=== PATIENT | female | born 1980 | race Caucasian/White ===

== ENCOUNTER 2024-01-21 08:37 | Observation (INO) | payer OTHER, SELFPAY ==
--- NOTE | 2024-01-21 | CONS_ITS ---
CONSULTATION ? CONSULTATION DATE: ??01/21/2024 ? REASON FOR CONSULTATION:?? Abdominal pain, cholelithiasis. ? HISTORY OF PRESENT ILLNESS:? Patient is a 44-year-old female, been previously in good health, who presented to the emergency room this morning with acute onset of upper abdominal pain that woke her from sleep at 3:00 a.m.? She did have associated nausea, vomiting.? Reports the pain was sharp, radiated around the upper abdomen.? She did feel bloating and pressure as well.? No relief with vomiting.? She does report a history of milder, similar type symptoms, worse with fatty foods, but never of this intensity.? Because of the persistent pain, she presented to the emergency room.? She was noted to have normal laboratory evaluation.? CT scan revealed evidence of a distended gallbladder without significant inflammatory changes.? Subsequent underwent ultrasound which revealed mild thickening of the gallbladder wall, as well as distention and numerous stones within the gallbladder, normal size common bile duct.? Patient?s only abdominal surgery has been a in the past.? She denies history of jaundice or pancreatitis.? She has had no bowel changes.? Since her admission, she has had no further nausea, vomiting as her pain has improved.? She is a non- smoker.? She reports allergies to penicillin, which causes hives.? ? PAST SURGICAL HISTORY:? Significant for a? in the past.? ? SOCIAL HISTORY:? Patient is .? She denies tobacco use.? She reports rare alcohol use.? No illicit drug use.? FAMILY HISTORY:? Noncontributory. ? REVIEW OF SYSTEMS:? Ten system review of systems is negative for recent weight loss or weight gain.? She denies increased fatigue or lightheadedness.? Has had no earache or tinnitus.? No sinus congestion, no sore throat or hoarseness.? No chest pain, palpitations or syncope.? No chronic cough, shortness of breath or hemoptysis.? She has had the abdominal pain, nausea, vomiting, which are improving.? No bowel changes.? No melena, hematochezia or bright red blood per rectum.? No dysuria, frequency, urgency or hematuria.? No headaches, seizures or tremors.? No easy bruising or bleeding.? No heat or cold intolerance.? No polydipsia, polyphagia or polyuria.? ? PHYSICAL EXAM:? VITAL SIGNS:? Patient is afebrile.? Blood pressure 144/82, respiratory rate 16, O2 saturation is 98% on room air.? General:? In general, she is a well developed, well nourished female, currently in mild distress secondary to abdominal pain. HEENT:? Normocephalic, atraumatic.? Sclerae anicteric.? Conjunctivae are not injected.? Oral mucosa is moist without lesions.? Neck is supple.? There is no adenopathy, thyromegaly or JVD. Lungs are clear bilaterally. Cardiac exam is regular rhythm and rate without appreciable murmurs, rubs or gallops. Abdomen is obese, soft.? There is tenderness in the epigastrium, right upper quadrant.? No peritoneal signs.? No masses.? No hepatosplenomegaly.? No hernias noted.? No CVA tenderness. Skin is warm and dry without lesions, rashes or ulcers. Neuro exam is non-focal, non-lateralizing.? Patient is awake, alert, oriented with appropriate affect. Musculoskeletal exam reveals normal muscle strength, mass and tone. ? IMAGING:? CT scan and ultrasound images were personally reviewed. ? ASSESSMENT:? A 44-year-old female with evidence of severe upper abdominal pain associated with nausea, vomiting, evidence of distended gallbladder with multiple stones within the gallbladder, as well as mild gallbladder wall thickening, overall consistent with possible early cholecystitis versus severe episode of biliary colic. ? PLAN:? To hydrate the patient.? Keep her on IV antibiotics.? She has been on minimal clear liquid diet, which she is not really taking.? We will keep her NPO after midnight and plan on laparoscopic cholecystectomy tomorrow.? Indications, risks, benefits, alternatives of proceeding were explained extensively to the patient, including risks of bleeding, infection, bile duct injury, bowel injury, need for intraoperative cholangiogram, postoperative ERCP, open procedure, blood clot, pulmonary embolus, heart attack, anesthetic complications and need for further surgery.? All of her questions were answered.? Informed consent was obtained.? ? CC:? Patient?s family doctor ERIC
[2024-01-21 08:42] VITALS: BP 175/90; PULSE 59; TEMP 36.7; O2SAT 98; BMI 41.8
--- NOTE | 2024-01-21 09:17 | ED.GENADUL1 ---
HPI HPI - General Adult General Chief complaint: Abdominal Pain Stated complaint: ABDOMINAL PAIN/VOMITTING Time Seen by Provider: 01/21/24 09:02 Source: patient Mode of arrival: walk-in Limitations: no limitations History of Present Illness HPI narrative: Patient presented to the emergency department for evaluation of abdominal pain. Patient states that she woke up at approximately 3 AM with abdominal pain. States it is epigastric, right upper quadrant. Has been coming and going since 3 AM. States that she is thrown up approximately 4-5 times since 3 AM. Patient states nothing makes the pain better or worse, but she feels that her stomach is cramping. She states it is currently 6 out of 10. Patient states no radiation of the pain. No hematuria, urgency, frequency, diarrhea, constipation. Patient denies any fevers, chills, or inability tolerate oral intake. States for the last couple hours while the fluid is out of her stomach and she is now just dry heaving. No other complaints at this time Related Data Home Medications ?Medication ?Instructions ?Recorded ?Confirmed No Known Home Medications 01/21/24 01/21/24 Allergies Allergy/AdvReac Type Severity Reaction Status Date / Time Penicillins AdvReac Mild Hives Verified 01/21/24 08:42 Opioid HPI Opioid Management Most Recent Opioid Data: Last Pain Scale 8 01/21/24 12:12 Last MAR Pain Assessment 01/21/24 12:12 Review of Systems ROS Narrative Negative unless otherwise stated in HPI Exam Narrative Exam Narrative: General: NAD, AAOx3, no distress HEENT: NCAT, mmm Respiratory: respiratory effort normal, speaks in full sentences, no tripod position, no accessory muscle use. Lungs clear to auscultation without rhonchi, wheezes, rales Cardiac: Regular rate and rhythm, no edema, regular s1/s2, no m/g/r Abdomen: Soft, right upper quadrant abdominal tenderness. No evidence of fluid wave. No pulsatile masses on exam, rebound tenderness, Mcdonald sign or pain over Mcburney's point. Constitutional Vital Signs, click to edit/add: Last Vital Signs Temp 98.0 F 01/21/24 08:42 Pulse 59 L 01/21/24 08:42 Resp 18 01/21/24 08:42 BP 175/90 H 01/21/24 08:42 Pulse Ox 98 01/21/24 08:42 O2 Del Method Room Air 01/21/24 08:42 Course Vital Signs Vital signs: Vital Signs Temperature 98.0 F 01/21/24 08:42 Pulse Rate 59 L 01/21/24 08:42 Respiratory Rate 18 01/21/24 08:42 Blood Pressure 175/90 H 01/21/24 08:42 Pulse Oximetry 98 01/21/24 08:42 Oxygen Delivery Method Room Air 01/21/24 08:42 Temperature 98.0 F 01/21/24 08:42 Pulse Rate 59 L 01/21/24 08:42 Respiratory Rate 18 01/21/24 08:42 Blood Pressure 175/90 H 01/21/24 08:42 Pulse Oximetry 98 01/21/24 08:42 Oxygen Delivery Method Room Air 01/21/24 08:42 Medical Decision Making MDM Narrative Medical decision making narrative: MDM Patient with history as above presented with abdominal pain. History obtained from patient Patient was nontoxic, stable. Ambulatory. Exam as above. Labs reviewed. Independently reviewed imaging. Reviewed external records. Differential diagnosis considered. Overall presentation is consistent with acute cholecystitis 1144 I discussed with general surgery. He will be on consult [address] Og, who agreed to admit patient for acute cholecystitis with general surgery on consult. Signout was completed at this time. Medical Records Medical records reviewed: Yes I reviewed the patient's medical records Lab Data Lab results reviewed: Yes I reviewed the patient's lab results Labs: Lab Results 01/21/24 01/21/24 Range/Units 08:46 10:53 WBC 11.2 H (4.0-11.0) 10^3/uL RBC 4.58 (4.20-5.40) 10^6/uL Hgb 13.9 (12.0-16.0) g/dL Hct 40.4 (36.0-48.0) % MCV 88.2 (81.0-99.0) fL MCH 30.3 (26.7-34.0) pg MCHC 34.4 (29.9-35.2) g/dL RDW 12.6 (11.0-15.0) % Plt Count 300 (150-450) 10^3/uL MPV 11.6 (9.5-13.5) fL Neut % (Auto) 84.7 H (43.0-75.0) % Lymph % (Auto) 10.4 L (20.5-60.0) % [facility] % (Auto) 4.0 (1.7-12.0) % Eos % (Auto) 0.3 L (0.9-7.0) % Baso % (Auto) 0.3 (0.2-2.0) % Neut # (Auto) 9.5 H (1.4-6.5) 10^3/uL Lymph # (Auto) 1.2 (1.2-3.8) 10^3/uL [facility] [place] [facility] # (Auto) 0.5 (0.3-0.8) 10^3/uL Eos # (Auto) 0.0 (0.0-0.7) 10^3/uL Baso # (Auto) 0.0 (0.0-0.1) 10^3/uL Abs Immat Gran (auto) 0.03 (0.00-0.03) 10^3/uL Imm/Tot Granulo (auto) 0.3 (0.0-0.5) % Sodium 138 (136-145) mmol/L Potassium 4.2 (3.5-5.1) mmol/L Chloride 101 (98-107) mmol/L Carbon Dioxide 23.9 (21.0-32.0) mmol/L Anion Gap 17.3 BUN 15.0 (7.0-18.0) mg/dL Creatinine 0.76 (0.55-1.02) mg/dL Est GFR ( Amer) >60 (>=60) Est GFR (Non-Af Amer) >60 (>=60) BUN/Creatinine Ratio 19.7 Glucose 131 H (74-106) mg/dL Calcium 9.5 (8.5-10.1) mg/dL Total Bilirubin 0.4 (0.2-1.0) mg/dL AST 21 (15-37) U/L ALT 27 (14-59) U/L Alkaline Phosphatase 62 (46-116) U/L Total Protein 7.8 (6.4-8.2) g/dL Albumin 4.0 (3.4-5.0) g/dL Globulin 3.8 g/dL Albumin/Globulin Ratio 1.1 Lipase 46.0 (16.0-77.0) U/L Urine HCG, Qual Negative (NEGATIVE) Imaging Data US - abdomen: Radiologist's impression: ITS Impressions Abdomen/Pelvis CT 01/21/24 10:05 IMPRESSION: 1. Suspect cholelithiasis and possibly acute cholecystitis. Ultrasound evaluation recommended. Electronically authenticated by: BRENDA MELENDEZ Date: 01/21/2024 10:28 Upper Quadrant Ultrasound 01/21/24 11:02 IMPRESSION: 1. Cholelithiasis and findings consistent with acute cholecystitis. Electronically authenticated by: BRENDA MELENDEZ Date: 01/21/2024 11:45 Discharge Plan Discharge Chief Complaint: Abdominal Pain Clinical Impression: Acute cholecystitis Patient Disposition: Admitted as Observation Time of Disposition Decision: 12:14 Condition: Good Prescriptions / Home Meds: No Action No Known Home Medications Print Language: Pashto Referrals: Physician,Non-Staff, MD [Primary Care Provider] - 1 week
[2024-01-21] MEDS: 0.9 % SODIUM CHLORIDE 1,000 ML 999 ML IV (09:23)
[2024-01-21] MEDS: ONDANSETRON PF 4 MG/2 ML VIAL IV ×2 (09:24→12:12)
[2024-01-21 09:26] LABS: Basophils Percent Auto 0.3 % (0.2-2.0); Eosinophils Percent Auto 0.3 % (0.9-7.0); Hematocrit 40.4 % (36.0-48.0); Hemoglobin 13.9 g/dL (12.0-16.0); Immature Granulocytes Abs Auto 0.03 10^3/uL (0.00-0.03); Immature Granulocytes Pct Auto 0.3 % (0.0-0.5); Lymphocytes Absolute Auto 1.2 10^3/uL (1.2-3.8); Lymphocytes Percent Auto 10.4 % (20.5-60.0); Mean Corpuscular HGB Conc 34.4 g/dL (29.9-35.2); Mean Corpuscular Hemoglobin 30.3 pg (26.7-34.0); Mean Corpuscular Volume 88.2 fL (81.0-99.0); Mean Platelet Volume 11.6 fL (9.5-13.5); Monocytes Absolute Auto 0.5 10^3/uL (0.3-0.8); Neutrophils Absolute Auto 9.5 10^3/uL (1.4-6.5); Neutrophils Percent Auto 84.7 % (43.0-75.0); Platelet Count 300 10^3/uL (150-450); Red Blood Count 4.58 10^6/uL (4.20-5.40); Red Cell Distribution Width 12.6 % (11.0-15.0); White Blood Count 11.2 10^3/uL (4.0-11.0)
[2024-01-21] MEDS: MORPHINE SULFATE 4 MG/ML VIAL IV ×2 (09:28→12:12)
[2024-01-21 09:34] LABS: Alanine Aminotransferase 27 U/L (14-59); Albumin Globulin Ratio 1.1; Alkaline Phosphatase 62 U/L (46-116); Anion Gap 17.3; Aspartate Amino Transferase 21 U/L (15-37); BUN Creatinine Ratio 19.7; Bilirubin Total 0.4 mg/dL (0.2-1.0); Calcium 9.5 mg/dL (8.5-10.1); Carbon Dioxide 23.9 mmol/L (21.0-32.0); Chloride 101 mmol/L (98-107); Estimated GFR (African America >60 (>=60); Estimated GFR (Non-African Ame >60 (>=60); Globulin 3.8 g/dL; Glucose 131 mg/dL (74-106); Potassium 4.2 mmol/L (3.5-5.1); Sodium 138 mmol/L (136-145); Total Protein 7.8 g/dL (6.4-8.2)
--- NOTE | 2024-01-21 10:05 | CT_ITS ---
[address] [place], [place] [address] Patient Name: CRYS OLIVAS MRN: [id number] date: 1980 Sex: F Assigned Patient Location: ER Current Patient Location: ER Accession/Order Number: [id number] Exam Date: 01/21/2024 09:50 Report Date: 01/21/2024 10:28 At the request of: ROLA HEAD Procedure: CT abdomen pelvis w con EXAMINATION: CT abdomen pelvis w con HISTORY: abdominal pain , vomiting, right lower quadrant pain COMPARISON: No relevant comparison available. TECHNIQUE: Axial, Coronal, and Sagittal images were obtained without and/or with IV contrast as indicated by examination type. Dose reduction techniques were achieved by using automated exposure control and/or adjustment of mA and/or kV according to patient size and/or use of iterative reconstruction technique. FINDINGS: LUNG BASES: No visible pulmonary or pleural disease. LIVER: No enlargement, atrophy, suspicious density, or significant focal lesion. BILIARY: Well-distended gallbladder suspected to contain multiple noncalcified stones, borderline wall thickening, and mildly dilated common bile duct, 7 mm. PANCREAS: No lesion, fluid collection, or abnormal duct dilatation. SPLEEN: No enlargement or focal lesion. ADRENALS: No mass or enlargement. KIDNEYS: No mass, obstruction, or calcification. BOWEL/MESENTERY: No visible mass, obstruction, or bowel wall thickening. Normal appendix. AORTA/VASCULAR: No aneurysm or dissection. RETROPERITONEUM: No mass or adenopathy. LYMPH NODES: No adenopathy. URINARY BLADDER: No visible focal wall thickening, lesion, or calculus. PELVIC ORGANS: 2.1 cm mass within posterior uterine wall favoring a leiomyoma. ABDOMINAL WALL: No mass or hernia. BONES: No bony lesion or fracture. OTHER: Negative. CT/CT abdomen pelvis w con IMPRESSION: 1. Suspect cholelithiasis and possibly acute cholecystitis. Ultrasound evaluation recommended. Electronically authenticated by: BRENDA MELENDEZ Date: 01/21/2024 10:28
--- NOTE | 2024-01-21 11:02 | US_ITS ---
The [address] [address] Patient Name: CRYS OLIVAS MRN: [id number] date: 1980 Sex: F Assigned Patient Location: ER Current Patient Location: ER Accession/Order Number: [id number] Exam Date: 01/21/2024 11:05 Report Date: 01/21/2024 11:45 At the request of: ROLA HEAD Procedure: US right upper quadrant EXAMINATION: US right upper quadrant HISTORY: RUQ pain, abnormal CT rule out acute arabella COMPARISON: CT abdomen pelvis 01/21/2024 TECHNIQUE: Transabdominal evaluation of the right upper quadrant. FINDINGS: LIVER: Normal size and echotexture. Color Doppler demonstrates patent hepatic veins. PORTAL VEIN: Duplex Doppler demonstrates normal hepatopetal flow pattern with flow velocity averaging 33 cm/s. GALLBLADDER: Contains numerous stones along with abnormal wall thickening, 3.6 mm. Positive sonographic Mcdonald's sign. BILIARY: Common bile duct is normal in diameter and contains no appreciable stones or mass. PANCREAS: No visible mass, abnormal atrophy, or duct dilation. KIDNEY: No hydronephrosis. No visible mass or stones. Size: 11.5 x 4.5 x 4.1 cm US/US right upper quadrant IMPRESSION: 1. Cholelithiasis and findings consistent with acute cholecystitis. Electronically authenticated by: BRENDA MELENDEZ Date: 01/21/2024 11:45
[2024-01-21 11:03] LABS: HCG Qualitative Urine* NEGATIVE (NEGATIVE); Internal Control Within Normal Limits
[2024-01-21] MEDS: CEFTRIAXONE 1,000 MG in 0.9 % SODIUM CHLORIDE 50 ML 100 MG IV (11:47)
[2024-01-21] MEDS: METRONIDAZOLE/SODIUM CHLORIDE 500 MG/100 ML PREMIX 100 MG IV ×2 (12:13→20:42)
--- NOTE | 2024-01-21 12:49 | PM.HP ---
HPI H&P: HPI History of Present Illness Chief complaint: ABDOMINAL PAIN/VOMITTING Narrative: 44-year-old female with no significant past medical history presents with nausea, vomiting, right upper quadrant abdominal pain since last evening. She denies constipation, diarrhea. She denies prior history of cholelithiasis. Workup in ED revealed acute cholecystitis. She states that she is still feeling nauseous and quite uncomfortable in her right upper quadrant. General surgery consulted for acute cholecystitis. She is a started on IV fluids, IV Rocephin and Flagyl. Will keep her on clear liquid diet for now and then make her n.p.o. after midnight. Opioid HPI Opioid Management Most Recent Pain and Opioid Data: Last Pain Scale 8 01/21/24 12:12 Last MAR Pain Assessment 01/21/24 12:12 Review of Systems ROS Status of ROS 10 or more systems reviewed and unremarkable except as noted in history and below [facility] Social History (Updated 01/21/24 @ 12:51 by Shaikh Lenka MD) Within the past year, how often did you have a drink containing alcohol: monthly or less Within the past year, how many standard drinks containing alcohol did you have on a typical day: 1 or 2 Within the past year, how often did you have six or more drinks on one occasion: never Total score: 0 Score interpretation: A score less than 3 is consistent with normal alcohol consumption. Smoking status: Never smoker Non-prescribed substance use: denies use Meds Home Medications and Allergies Home Medications ?Medication ?Instructions ?Recorded ?Confirmed ?Type No Known Home Medications 01/21/24 01/21/24 History Allergies Allergy/AdvReac Type Severity Reaction Status Date / Time Penicillins AdvReac Mild Hives Verified 01/21/24 08:42 Exam Constitutional Vital Signs, click to edit/add: Last Vital Signs Temp 98.0 F 01/21/24 08:42 Pulse 59 L 01/21/24 08:42 Resp 18 01/21/24 08:42 BP 175/90 H 01/21/24 08:42 Pulse Ox 98 01/21/24 08:42 O2 Del Method Room Air 01/21/24 08:42 Documenting provider has reviewed patient's vital signs: yes Common normals: no apparent distress and oriented x3 General appearance: cooperative Respiratory Common normals: normal respiratory effort and clear to auscultation bilaterally Effort & inspection: able to speak in complete sentences Auscultation: clear to auscultation bilaterally Cardio Common normals: regular rate, S1 normal heart sound and S2 normal heart sound Rate: regular rate Heart sounds: S1 normal and S2 normal GI Common normals: Normal to inspection, nondistended, normoactive bowel sounds present, soft to palpation and no hepatosplenomegaly Palpation: soft, tender Details: RUQ and no hepatosplenomegaly Extremity Common normals: no clubbing, cyanosis or edema Neuro Common normals: oriented x3, moves all extremities and no focal motor deficits Psych Common normals: mental status grossly normal, denies hallucinations, denies homicidal ideation and denies suicidal ideation Results Labs Labs: Short CBC 01/21/24 Range/Units 08:46 WBC 11.2 H (4.0-11.0) 10^3/uL Hgb 13.9 (12.0-16.0) g/dL Hct 40.4 (36.0-48.0) % Plt Count 300 (150-450) 10^3/uL BMP 01/21/24 08:46 Sodium 138 Potassium 4.2 Chloride 101 Carbon Dioxide 23.9 BUN 15.0 Creatinine 0.76 Glucose 131 H Calcium 9.5 Liver Function 01/21/24 Range/Units 08:46 Total Bilirubin 0.4 (0.2-1.0) mg/dL AST 21 (15-37) U/L ALT 27 (14-59) U/L Alkaline Phosphatase 62 (46-116) U/L Albumin 4.0 (3.4-5.0) g/dL Assessment and Plan Assessment and Plan (1) Acute cholecystitis: Assessment and Plan: Patient initial workup is consistent with acute cholecystitis. Continue with IV fluids, antiemetics, IV antibiotics. General surgery consulted (2) Nausea and vomiting: Assessment and Plan: Due to acute cholecystitis. Zofran as needed. Qualifiers: Vomiting type: unspecified Qualified Code(s): R11.2 - Nausea with vomiting, unspecified (3) Leukocytosis: Assessment and Plan: Likely due to acute cholecystitis. On IV antibiotics. Monitor. Qualifiers: Leukocytosis type: leukemoid reaction Qualified Code(s): D72.823 - Leukemoid reaction (4) Elevated blood pressure reading without diagnosis of hypertension: Assessment and Plan: Blood pressure without prior history of hypertension. This could be due to poorly controlled pain and or nausea. Monitor for now. IV hydralazine as needed. Plan Patient presented with nausea, vomiting and leukocytosis. Initial workup consistent with acute cholecystitis. Started on IV fluids, IV antibiotics. Zofran as needed for nausea and vomiting. General surgery consulted. On clear liquid diet for now. N.p.o. after midnight in anticipation of surgical intervention tomorrow
[2024-01-21 12:51] VITALS: BP 156/86; PULSE 78; O2SAT 99
[2024-01-21 13:10] VITALS: BP 144/82; PULSE 58; TEMP 36.5; O2SAT 98
[2024-01-21] MEDS: LACTATED RINGER'S SOLUTION 1,000 ML 125 ML IV ×2 (13:59→22:06)
[2024-01-21 14:31] VITALS: BMI 31.8
[2024-01-21] MEDS: ACETAMINOPHEN 325 MG TABLET 650 MG PO (16:04)
[2024-01-21 17:06] VITALS: O2SAT 98
[2024-01-21] MEDS: ENOXAPARIN SODIUM 40 MG/0.4 ML SYRINGE SUBQ (17:11)
--- NOTE | 2024-01-21 18:32 | PM.GSCN ---
History of Present Illness Consult details Consult date: 01/21/24 Requesting physician: Shaikh Lenka Narrative: patient seen/examined/chart and abd ct/US images reviewed/consult dictated; 44 yo female with acute onset of upper abd pain, N/V 15 hours ago, woke her from sleep, persisted, evaluated in ED and found to have distended GB with multiple stones, normal cbd, mild gallbladder wall thickening, no pericholecystic fluid or inflammation of abd CT scan; normal labs; likely early cholecystitis verses severe episode of biliary colic; plan bowel rest, hydration, IV antibiotics, will proceed with LS cholecystectomy with possible IOC, possible open procedure tomorrow, informed consent obtained. [facility] Medical History (Updated 01/21/24 @ 13:20 by Evelyne Prescott LPN) delivery delivered ?O82 - Encounter for delivery without indication (ICD-10) Family History (Updated 01/21/24 @ 13:21 by Evelyne Prescott LPN) Grandmother Family history of cancer Father Family history of diabetes mellitus Social History (Updated 01/21/24 @ 13:22 by Evelyne Prescott LPN) Within the past year, how often did you have a drink containing alcohol: monthly or less Within the past year, how many standard drinks containing alcohol did you have on a typical day: 1 or 2 Within the past year, how often did you have six or more drinks on one occasion: never Total score: 0 Score interpretation: A score less than 3 is consistent with normal alcohol consumption. Smoking status: Never smoker Non-prescribed substance use: denies use Previous occupational history: prepared foods service team member Known occupational exposures/hazards: No Highest level of school completed/degree received: high school graduate Are you now , , , , never or living with a partner: In a typical week, how many times do you talk on the telephone with family, friends, or neighbors: 3 or more times per week How often do you get together with friends or relatives: 3 or more times per week How often do you attend samaritan or hoahaoism services: never Do you belong to any clubs or organizations such as samaritan groups unions, fraternal or athletic groups, or school groups: no Total score: 1 Score interpretation: A score of less than or equal to 1 indicates the most socially isolated. Little interest or pleasure in doing things: not at all Feeling down, depressed, or hopeless: not at all Feel stressed/tense/nervous/anxious/difficulty sleeping: not at all Due to disability, difficulty making decisions: No Do you think of yourself as: straight/heterosexual Gender Identity: female Meds Home Medications and Allergies Home Medications ?Medication ?Instructions ?Recorded ?Confirmed ?Type No Known Home Medications 01/21/24 01/21/24 History Allergies Allergy/AdvReac Type Severity Reaction Status Date / Time Penicillins AdvReac Mild Hives Verified 01/21/24 08:42 Exam Constitutional Vital Signs, click to edit/add: Last Vital Signs Temp 97.7 F 01/21/24 13:10 Pulse 58 L 01/21/24 13:10 Resp 16 01/21/24 13:10 BP 144/82 H 01/21/24 13:10 Pulse Ox 98 01/21/24 17:06 O2 Del Method Room Air 01/21/24 17:06 Results Labs Labs: Abnormal lab results 01/21/24 Range/Units 08:46 WBC 11.2 H (4.0-11.0) 10^3/uL Neut % (Auto) 84.7 H (43.0-75.0) % Lymph % (Auto) 10.4 L (20.5-60.0) % Eos % (Auto) 0.3 L (0.9-7.0) % Neut # (Auto) 9.5 H (1.4-6.5) 10^3/uL Glucose 131 H (74-106) mg/dL Diabetes panel 01/21/24 Range/Units 08:46 Sodium 138 (136-145) mmol/L Potassium 4.2 (3.5-5.1) mmol/L Chloride 101 (98-107) mmol/L Carbon Dioxide 23.9 (21.0-32.0) mmol/L BUN 15.0 (7.0-18.0) mg/dL Creatinine 0.76 (0.55-1.02) mg/dL Glucose 131 H (74-106) mg/dL Calcium 9.5 (8.5-10.1) mg/dL AST 21 (15-37) U/L ALT 27 (14-59) U/L Alkaline Phosphatase 62 (46-116) U/L Total Protein 7.8 (6.4-8.2) g/dL Albumin 4.0 (3.4-5.0) g/dL Calcium panel 01/21/24 Range/Units 08:46 Calcium 9.5 (8.5-10.1) mg/dL Albumin 4.0 (3.4-5.0) g/dL Pituitary panel 01/21/24 Range/Units 08:46 Sodium 138 (136-145) mmol/L Potassium 4.2 (3.5-5.1) mmol/L Chloride 101 (98-107) mmol/L Carbon Dioxide 23.9 (21.0-32.0) mmol/L BUN 15.0 (7.0-18.0) mg/dL Creatinine 0.76 (0.55-1.02) mg/dL Glucose 131 H (74-106) mg/dL Calcium 9.5 (8.5-10.1) mg/dL Adrenal panel 01/21/24 Range/Units 08:46 Sodium 138 (136-145) mmol/L Potassium 4.2 (3.5-5.1) mmol/L Chloride 101 (98-107) mmol/L Carbon Dioxide 23.9 (21.0-32.0) mmol/L BUN 15.0 (7.0-18.0) mg/dL Creatinine 0.76 (0.55-1.02) mg/dL Glucose 131 H (74-106) mg/dL Calcium 9.5 (8.5-10.1) mg/dL Total Bilirubin 0.4 (0.2-1.0) mg/dL AST 21 (15-37) U/L ALT 27 (14-59) U/L Alkaline Phosphatase 62 (46-116) U/L Total Protein 7.8 (6.4-8.2) g/dL Albumin 4.0 (3.4-5.0) g/dL All other labs normal. Assessment and Plan Assessment and Plan (1) Acute cholecystitis: (2) Nausea and vomiting: Qualifiers: Vomiting type: unspecified Qualified Code(s): R11.2 - Nausea with vomiting, unspecified (3) Leukocytosis: Qualifiers: Leukocytosis type: leukemoid reaction Qualified Code(s): D72.823 - Leukemoid reaction (4) Elevated blood pressure reading without diagnosis of hypertension:
[2024-01-21 20:03] VITALS: O2SAT 97
[2024-01-21 21:21] VITALS: BP 130/76; PULSE 68; TEMP 36.8; O2SAT 97
[2024-01-22] VITALS (21 sets, daily range): BP systolic 102–155; BP diastolic 68–90; PULSE 54–86; TEMP 36.6–36.8; O2SAT 93–99
[2024-01-22] MEDS: METRONIDAZOLE/SODIUM CHLORIDE 500 MG/100 ML PREMIX 100 MG IV ×3 (04:55→19:53)
[2024-01-22] MEDS: LACTATED RINGER'S SOLUTION 1,000 ML 125 ML IV ×2 (05:00→19:53)
[2024-01-22] MEDS: PANTOPRAZOLE SODIUM 40 MG VIAL IV (05:49)
[2024-01-22 06:28] LABS: Basophils Percent Auto 0.4 % (0.2-2.0); Eosinophils Absolute Auto 0.2 10^3/uL (0.0-0.7); Hematocrit 36.7 % (36.0-48.0); Hemoglobin 12.2 g/dL (12.0-16.0); Immature Granulocytes Abs Auto 0.02 10^3/uL (0.00-0.03); Immature Granulocytes Pct Auto 0.3 % (0.0-0.5); Lymphocytes Absolute Auto 2.1 10^3/uL (1.2-3.8); Lymphocytes Percent Auto 26.3 % (20.5-60.0); Mean Corpuscular HGB Conc 33.2 g/dL (29.9-35.2); Mean Corpuscular Hemoglobin 30.2 pg (26.7-34.0); Mean Corpuscular Volume 90.8 fL (81.0-99.0); Mean Platelet Volume 12.1 fL (9.5-13.5); Monocytes Absolute Auto 0.6 10^3/uL (0.3-0.8); Platelet Count 237 10^3/uL (150-450); Red Blood Count 4.04 10^6/uL (4.20-5.40); Red Cell Distribution Width 12.9 % (11.0-15.0)
[2024-01-22 06:57] LABS: Alanine Aminotransferase 26 U/L (14-59); Albumin Level 3.2 g/dL (3.4-5.0); Alkaline Phosphatase 55 U/L (46-116); Anion Gap 10.8; Aspartate Amino Transferase 15 U/L (15-37); BUN Creatinine Ratio 10.7; Bilirubin Total 0.5 mg/dL (0.2-1.0); Calcium 8.7 mg/dL (8.5-10.1); Carbon Dioxide 29.8 mmol/L (21.0-32.0); Chloride 104 mmol/L (98-107); Estimated GFR (African America >60 (>=60); Estimated GFR (Non-African Ame >60 (>=60); Globulin 3.1 g/dL; Glucose 96 mg/dL (74-106); Potassium 3.6 mmol/L (3.5-5.1); Sodium 141 mmol/L (136-145); Total Protein 6.3 g/dL (6.4-8.2)
--- NOTE | 2024-01-22 10:13 | CM.NOTE ---
Rounds made with Dr. Og, pt awaiting OR today and possible discharge post-op.
[2024-01-22] MEDS: CEFTRIAXONE 1,000 MG in 0.9 % SODIUM CHLORIDE 50 ML 100 MG IV (10:30)
[2024-01-22] MEDS: ONDANSETRON PF 4 MG/2 ML VIAL IV (11:24)
[2024-01-22] MEDS: FAMOTIDINE/PF 20 MG/2 ML VIAL IV (13:02)
[2024-01-22] MEDS: SCOPOLAMINE 1 MG/3 DAYS TRANSDERM PATCH 1 PATCH TD (13:02)
[2024-01-22] MEDS: LACTATED RINGER'S SOLUTION 1,000 ML 50 ML IV ×2 (13:33→15:27)
[2024-01-22] MEDS: BUPIVACAINE HCL 0.5% PF 50 MG/10 ML VIAL 20 ML INJ (14:46)
--- NOTE | 2024-01-22 14:55 | OP_ITS ---
OP Note ? OPERATION DATE: ??01/22/2024 ? PREOPERATIVE DIAGNOSIS:? Acute cholecystitis. ? POSTOPERATIVE DIAGNOSIS:? Acute and chronic cholecystitis with cholelithiasis ? PROCEDURE:? Laparoscopic cholecystectomy. ? SURGEON:? Fidel Lopez M.D. ? GROCERY BUYER:? NICOLE Amaya ? ANESTHESIA:? General endotracheal. ? ESTIMATED BLOOD LOSS:? Less than 75 mL. ? INDICATIONS AND CONSENT:? Patient is a 44-year-old female with a several day history of severe upper abdominal pain with nausea, vomiting and CT and ultrasound evidence of multiple stones and a dilated, mildly thickened gallbladder wall.? She had normal laboratory evaluation and has been afebrile.? Indications, risks, benefits, alternatives of proceeding with laparoscopic cholecystectomy, possible intraoperative cholangiogram, possible open procedure were explained extensively to the patient, including risks of bleeding, infection, bile duct injury, bowel injury, need for intraoperative cholangiogram, postoperative ERCP, open procedure, blood clot, pulmonary embolus, heart attack, anesthetic complications or need for further surgery.? All of her questions were answered.? Informed consent was obtained. ? PROCEDURE:? Patient was brought to the operating room, placed in the supine position.? General anesthesia was induced.? She was prepped and draped in the usual sterile fashion.? A infraumbilical incision was made with the scalpel blade and carried down through subcutaneous tissue using blunt dissection.? The fascia was grasped and incised.? Two 0 Vicryl stay sutures placed in either side of the midline fascia.? The Martinez trocar was then inserted and secured using the stay sutures.? The abdomen was then insufflated with carbon dioxide to a pressure of 15 mm/Hg.? The scope was then inserted and the upper abdomen was visualized.? The patient was placed in reverse Trendelenburg position with the right side up.? There was noted to be a distended gallbladder with some acute and chronic inflammatory changes.? Three 5 mm ports were then placed; one in the subxiphoid area and two in the right subcostal area, all under direct visualization.? The gallbladder was grasped with an atraumatic grasper.? The fundus was retracted cephalad and to the patient?s right.? There were omental adhesions that were taken down.? This allowed the infundibulum to be grasped, retracted laterally and inferiorly.? There was some redundancy of the gallbladder, as well as acute and chronic inflammatory changes.? Dissection was begun just below the infundibulum, which was noted to be dilated with multiple stones.? The cystic artery was carefully dissected out.? The infundibulum was completely freed up from the liver bed, both medially and laterally, with just the artery and the infundibulum and mildly dilated duct extending into the gallbladder.? The artery was clipped with two Hem-O-Ijeoma clips proximally towards the common duct and one regular clip distally towards the gallbladder, then divided. ?There was a posterior branch that was also controlled with regular clips.? There appeared to be some stones in the infundibulum, but none palpable in the proximal cystic duct, which was mildly dilated. ?It was able to be clipped, just below the infundibulum with Hem-O-Ijeoma clips; two proximally towards the common duct and a regular clip distally towards the infundibulum.? It was then divided.? The gallbladder was then taken down from the liver bed using electrocautery.? There were some chronic inflammatory changes noted.? Small vessels were controlled with regular clips.? Once the gallbladder was completely removed, it was brought out in an Endocatch bag through the umbilical port site.? The upper abdomen was then copiously irrigated until clear.? There was oozing from inflammatory changes, as well as a small capsular tear in the right lateral liver.? This was controlled with cautery with good hemostasis.? The liver bed was inspected, noted to be hemostatic, with no evidence of bile leak.? Because of the oozing and inflammation, a 15 round J-P drain was placed through the lateral right subcostal port site and placed in the subhepatic space.? It was secured to the skin using a 3-0 nylon suture and placed to closed bulb suction.? Once the abdomen was irrigated clear, there was good hemostasis noted.? No evidence of bile leak.? All port sites were examined upon withdrawal of the ports.? There was noted to be good hemostasis.? The umbilical pot site fascia was then closed with a 0 Vicryl figure of eight suture.? All port sites were infiltrated with 0.5% Marcaine.? The skin was then closed with interrupted 4-0 subcuticular Monocryl sutures and skin glue.? Sterile pressure dressings were applied to the incisions and a drain sponge around the drain.? Patient tolerated procedure well, was extubated and sent to recovery room in good condition.? ? CC:? Patient?s family physician ERIC
[2024-01-22] MEDS: PROMETHAZINE HCL 12.5 MG in 0.9 % SODIUM CHLORIDE 50 ML 202 MG IV (15:25)
--- NOTE | 2024-01-22 15:34 | PC.NURSE ---
1526: pt given IV phenergan 12.5mg per order.
--- NOTE | 2024-01-22 16:52 | P.IMPN_ITS ---
Progress Note: A&P Assessment and Plan (1) Acute cholecystitis: Assessment and Plan: Patient was NPO for Laparoscopic Cholecystectomy. Discussed with surgery - patient will benefit from continued observation, IV abx post op as there was considerable inflammation noted intraoperatively. (2) Nausea and vomiting: Assessment and Plan: Resolved. Qualifiers: Vomiting type: unspecified Qualified Code(s): R11.2 - Nausea with vomiting, unspecified (3) Leukocytosis: Assessment and Plan: Resolved. Qualifiers: Leukocytosis type: leukemoid reaction Qualified Code(s): D72.823 - Leukemoid reaction (4) Elevated blood pressure reading without diagnosis of hypertension: Assessment and Plan: At goal. No need to treat. Monitor as outpatient. Plan Will need overnight monitoring post op as per general surgery. C/w IVF, IV abx. Internal Medicine - PN: Subj Subjective Interval history: Seen and examined earlier prior to surgery. Patient reported that she was feeling well, denied nausea and abdominal pain overnight.No overnight events. Post operatively, I saw her in PACU and she was still recovering from anesthesia. Exam Constitutional Vital Signs, click to edit/add: Last Vital Signs Temp 98.0 F 01/22/24 16:10 Pulse 54 L 01/22/24 16:32 Resp 16 01/22/24 16:32 BP 138/87 01/22/24 16:32 Pulse Ox 94 L 01/22/24 16:32 O2 Del Method Room Air 01/22/24 16:32 O2 Flow Rate 2 01/22/24 15:56 Documenting provider has reviewed patient's vital signs: yes Common normals: no apparent distress and oriented x3 General appearance: cooperative Respiratory Common normals: normal respiratory effort and clear to auscultation bilaterally Effort & inspection: able to speak in complete sentences Auscultation: clear to auscultation bilaterally Cardio Common normals: regular rate, S1 normal heart sound and S2 normal heart sound Rate: regular rate Heart sounds: S1 normal and S2 normal GI Common normals: Normal to inspection, nondistended, normoactive bowel sounds present, soft to palpation and no hepatosplenomegaly Palpation: soft, tender Details: RUQ and no hepatosplenomegaly Extremity Common normals: no clubbing, cyanosis or edema Neuro Common normals: oriented x3, moves all extremities and no focal motor deficits Psych Common normals: mental status grossly normal, denies hallucinations, denies homicidal ideation and denies suicidal ideation Internal Medicine - PN: Obj Da Labs Labs: Laboratory Results - last 24 hr 01/22/24 05:08 WBC 8.0 RBC 4.04 L Hgb 12.2 Hct 36.7 MCV 90.8 MCH 30.2 MCHC 33.2 RDW 12.9 Plt Count 237 MPV 12.1 Neut % (Auto) 63.0 Lymph % (Auto) 26.3 [place] % (Auto) 8.0 Eos % (Auto) 2.0 Baso % (Auto) 0.4 Neut # (Auto) 5.0 Lymph # (Auto) 2.1 [place] # (Auto) 0.6 Eos # (Auto) 0.2 Baso # (Auto) 0.0 Abs Immat Gran (auto) 0.02 Imm/Tot Granulo (auto) 0.3 Sodium 141 Potassium 3.6 Chloride 104 Carbon Dioxide 29.8 Anion Gap 10.8 BUN 8.0 Creatinine 0.75 Est GFR ( Amer) >60 Est GFR (Non-Af Amer) >60 BUN/Creatinine Ratio 10.7 Glucose 96 Calcium 8.7 Total Bilirubin 0.5 AST 15 ALT 26 Alkaline Phosphatase 55 Total Protein 6.3 L Albumin 3.2 L Globulin 3.1 Albumin/Globulin Ratio 1.0
[2024-01-23] MEDS: METRONIDAZOLE/SODIUM CHLORIDE 500 MG/100 ML PREMIX 100 MG IV (03:31)
[2024-01-23] MEDS: LACTATED RINGER'S SOLUTION 1,000 ML 125 ML IV (03:31)
[2024-01-23 04:40] VITALS: BP 97/57; PULSE 62; TEMP 36.8; O2SAT 98
[2024-01-23 05:44] LABS: Basophils Percent Auto 0.1 % (0.2-2.0); Hematocrit 32.1 % (36.0-48.0); Hemoglobin 10.9 g/dL (12.0-16.0); Immature Granulocytes Abs Auto 0.03 10^3/uL (0.00-0.03); Immature Granulocytes Pct Auto 0.3 % (0.0-0.5); Lymphocytes Absolute Auto 1.2 10^3/uL (1.2-3.8); Lymphocytes Percent Auto 12.4 % (20.5-60.0); Mean Corpuscular Hemoglobin 30.2 pg (26.7-34.0); Mean Corpuscular Volume 88.9 fL (81.0-99.0); Mean Platelet Volume 11.1 fL (9.5-13.5); Monocytes Absolute Auto 0.7 10^3/uL (0.3-0.8); Monocytes Percent Auto 7.3 % (1.7-12.0); Neutrophils Percent Auto 79.9 % (43.0-75.0); Platelet Count 221 10^3/uL (150-450); Red Blood Count 3.61 10^6/uL (4.20-5.40); Red Cell Distribution Width 12.7 % (11.0-15.0)
[2024-01-23 06:02] LABS: Alanine Aminotransferase 34 U/L (14-59); Albumin Level 2.9 g/dL (3.4-5.0); Alkaline Phosphatase 49 U/L (46-116); Anion Gap 10.9; Aspartate Amino Transferase 29 U/L (15-37); BUN Creatinine Ratio 7.8; Bilirubin Total 0.4 mg/dL (0.2-1.0); Calcium 8.4 mg/dL (8.5-10.1); Carbon Dioxide 26.7 mmol/L (21.0-32.0); Chloride 106 mmol/L (98-107); Estimated GFR (African America >60 (>=60); Estimated GFR (Non-African Ame >60 (>=60); Globulin 2.8 g/dL; Glucose 109 mg/dL (74-106); Potassium 3.6 mmol/L (3.5-5.1); Sodium 140 mmol/L (136-145); Total Protein 5.7 g/dL (6.4-8.2)
[2024-01-23] MEDS: PANTOPRAZOLE SODIUM 40 MG VIAL IV (06:04)
--- NOTE | 2024-01-23 08:11 | PM.GSPN ---
Progress Note: A&P Assessment and Plan (1) Acute cholecystitis: Assessment and Plan: POD # 1 doing well, jovany drain d/c'd; ibuprofen for pain; advance to regular diet; f/u with me next week; no lifting > 10 lbs for 4 weeks; no need for further antibiotics. (2) Nausea and vomiting: Qualifiers: Vomiting type: unspecified Qualified Code(s): R11.2 - Nausea with vomiting, unspecified (3) Leukocytosis: Qualifiers: Leukocytosis type: leukemoid reaction Qualified Code(s): D72.823 - Leukemoid reaction (4) Elevated blood pressure reading without diagnosis of hypertension: Subjective Subjective Interval history: patient denies pain, mild soreness with movement; no N/V; voiding well; tolerating some full liquids Exam Narrative Exam Narrative: abd: soft, nondistended, +bs, incisions without erythema or drainage, no ecchymoses; jovany with serosanguinous drainage. Constitutional Vital Signs, click to edit/add: Last Vital Signs Temp 98.2 F 01/23/24 04:40 Pulse 62 01/23/24 04:40 Resp 18 01/23/24 04:40 BP 97/57 01/23/24 04:40 Pulse Ox 98 01/23/24 04:40 O2 Del Method Room Air 01/23/24 04:40 O2 Flow Rate 2 01/22/24 15:56 Date and Time Date and Time of Service Date of service: 01/23/24 Time: 08:12
[2024-01-23 08:12] VITALS: BP 127/76; PULSE 59; TEMP 36.7; O2SAT 96
--- NOTE | 2024-01-23 09:21 | PM.DS1 ---
DS: Providers Provider Date of admission: 01/21/24 13:00 Primary care physician: Non-Staff Physician, Admitting clinician: Shaikh Lenka Attending physician on admission: Shaikh Lenka Consults: 01/21/24 12:07 Consult to General Surgeon Routine Consulting Provider: Fidel Lopez Reason for consultation: cholecystitis Attending physician on discharge: Shaikh Lenka Discharging clinician: Shaikh Lenka Anticipated date of discharge: 01/23/24 DS: Diagnosis Discharge Diagnosis (1) Acute cholecystitis: Assessment and plan: s/p lap cholecystectomy. Doing well post op. Tolerating PO diet. MARCY drain was pulled earlier today. Stable for discharge - no need for abx as per surgery. (2) Nausea and vomiting: Assessment and plan: Resolved. Qualifiers: Vomiting type: unspecified Qualified Code(s): R11.2 - Nausea with vomiting, unspecified (3) Leukocytosis: Assessment and plan: Resolved Qualifiers: Leukocytosis type: leukemoid reaction Qualified Code(s): D72.823 - Leukemoid reaction (4) Elevated blood pressure reading without diagnosis of hypertension: Assessment and plan: elevated on arrival likely due to pain. at goal since then. Will need outpatient monitoring DS: Summary Hospital Course Hospital Course: 44-year-old female with no significant past medical history presented with nausea, vomiting, right upper quadrant abdominal pain and was found to have acute cholecystitis. She was treated with IVF, Anti emetics, IV rocephin/flagyl and made NPO. She was evaluated by general surgery and was taken to OR on 01/22/24 for lap cholecystectomy. Patient did well post op and has no active complaints to offer except for mild post op pain. She is tolerating oral diet. No need for abx as per surgery. Patient stable for discharge. Will need f/u with PCP and General Surgery as outpatient. . Status at Discharge Functional status at discharge: independent ambulation Overall status at discharge: patient is back to baseline Time Spent with Patient Time attestation: Total time spent providing and/or coordinating discharge services: Time spent: greater than 30 minutes Exam Constitutional Vital Signs, click to edit/add: Last Vital Signs Temp 98.0 F 01/23/24 08:12 Pulse 59 L 01/23/24 08:12 Resp 18 01/23/24 08:12 BP 127/76 01/23/24 08:12 Pulse Ox 96 01/23/24 08:12 O2 Del Method Room Air 01/23/24 08:12 O2 Flow Rate 2 01/22/24 15:56 Documenting provider has reviewed patient's vital signs: yes Common normals: no apparent distress and oriented x3 General appearance: cooperative Respiratory Common normals: normal respiratory effort and clear to auscultation bilaterally Effort & inspection: able to speak in complete sentences Auscultation: clear to auscultation bilaterally Cardio Common normals: regular rate, S1 normal heart sound and S2 normal heart sound Rate: regular rate Heart sounds: S1 normal and S2 normal GI Common normals: Normal to inspection, nondistended, normoactive bowel sounds present, soft to palpation and no hepatosplenomegaly Palpation: soft and no hepatosplenomegaly Neuro Common normals: oriented x3, moves all extremities and no focal motor deficits DS: Data Data Completed and Pending Labs on day of discharge: Labs from last 24 hours 01/23/24 05:37 WBC 10.0 RBC 3.61 L Hgb 10.9 L Hct 32.1 L MCV 88.9 MCH 30.2 MCHC 34.0 RDW 12.7 Plt Count 221 MPV 11.1 Neut % (Auto) 79.9 H Lymph % (Auto) 12.4 L [place] % (Auto) 7.3 Eos % (Auto) 0.0 L Baso % (Auto) 0.1 L Neut # (Auto) 8.0 H Lymph # (Auto) 1.2 [place] # (Auto) 0.7 Eos # (Auto) 0.0 Baso # (Auto) 0.0 Abs Immat Gran (auto) 0.03 Imm/Tot Granulo (auto) 0.3 Sodium 140 Potassium 3.6 Chloride 106 Carbon Dioxide 26.7 Anion Gap 10.9 BUN 5.0 L Creatinine 0.64 Est GFR ( Amer) >60 Est GFR (Non-Af Amer) >60 BUN/Creatinine Ratio 7.8 Glucose 109 H Calcium 8.4 L Total Bilirubin 0.4 AST 29 ALT 34 Alkaline Phosphatase 49 Total Protein 5.7 L Albumin 2.9 L Globulin 2.8 Albumin/Globulin Ratio 1.0 Lipase 18.0 Discharge Plan Discharge Disposition: Home, Self-Care Condition: Good Discharge Medications: New ondansetron 4 mg tablet,disintegrating 4 mg PO Q8H PRN (Reason: nausea and vomiting) Qty: 10 0RF Activity: other Activity Detail: may shower, no tub baths or swimming for 10 days; keep drain site covered until it scabs over; no lifting > 10 lbs for 4 weeks; take ibuprofen, with food, as needed for pain; call with problems/questions; f/u with me next week in the [place] office. Diet: advance to your usual diet Print Language: Sammarinese Patient Instructions: Laparoscopic Cholecystectomy (GEN) Forms: Portal Instructions Follow Up Appointments: Dr Lopez [phone] Dr Lopez's nurse Noa will call patient to set up follow up appointment F/u with PCP in 1-2 weeks
--- NOTE | 2024-01-23 09:36 | CM.NOTE ---
Rounds made with Dr. Og, pt will discharge to home today and f/u with Dr. Lopez.
[2024-01-23] MEDS: IBUPROFEN 600 MG TABLET PO (10:03)
[2024-01-23 10:04] VITALS: O2SAT 97
--- NOTE | 2024-01-24 10:27 | CM.DCFOLLOWU ---
Person spoke with:patient How are you feeling? a little sore, but overall good How is your pain? minimal Did you understand your discharge instructions? yes Do you have any questions about your discharge instructions? no Were you given any prescriptions at discharge? yes Were you able to get your prescriptions filled? yes Do you understand how to take your medications as ordered? yes Do you have any questions about your follow up appointment and do you plan to keep your follow up appointment? no questions, reviewed information in regards to follow ups Is there anything else that you would like to discuss? no Questions/Comments/Concerns/Other:none
== END 2024-01-23 10:29 | disposition home or self-care (01) ==
LOC: ER 12:14 → MS 13:03
PROVIDERS: Surgery; Admitting Provider Internal Medicine; Emergency Provider Emergency Medicine; Visit Provider Internal Medicine
PROC: (CPT 790; principal; 2024-01-22 11:50)
DX: K80.00 Calculus of gallbladder with acute cholecystitis without obstruction (principal); R11.2 Nausea with vomiting, unspecified; D72.823 Leukemoid reaction; R03.0 Elevated blood-pressure reading, without diagnosis of hypertension
CPT/HCPCS: 47562; 36415; 74177; 76705; 80053; 83690; 84703; 85025; 88304; 94761; 96361; 96365; 96366; 96367; 96368; 96372; 96375; 96376; 99285; G0378; J0131; J0665; J0696; J1100; J1170; J1290; J1650; J1805; J1836; J1885; J2250; J2270; J2405; J2704; J3010; Q9967

== ENCOUNTER 2024-02-19 11:47 | Emergency (ER) | payer SELFPAY ==
[2024-02-19 11:54] VITALS: BP 123/86; PULSE 74; TEMP 36.6; O2SAT 98; BMI 41.6
--- NOTE | 2024-02-19 12:00 | ED.GENADUL1 ---
HPI HPI - General Adult General Chief complaint: Skin/Abscess/Foreign Body Stated complaint: BEE STING Time Seen by Provider: 02/19/24 11:49 Source: patient Mode of arrival: walk-in Limitations: no limitations History of Present Illness HPI narrative: Patient presents ED complaining of a bee sting. 3 days ago she got stung in the middle of her forehead and then today she felt like the left thigh area and cheek and upper lip were starting to get swollen. No redness no fevers no shortness of breath no cough no wheezing. Vital signs stable. She was just concerned about the swelling so she came in for further evaluation. Related Data Previous Rx's ?Medication ?Instructions ?Recorded ondansetron 4 mg disintegrating 4 mg PO Q8H PRN nausea and 01/23/24 tablet vomiting #10 tabs Allergies Allergy/AdvReac Type Severity Reaction Status Date / Time Penicillins AdvReac Mild Hives Verified 02/19/24 11:54 Opioid HPI Opioid Management Most Recent Opioid Data: Last Pain Scale 2 01/23/24 10:03 Last ORT Total Score 0 01/21/24 13:13 Last ORT Risk Category Low Risk 01/21/24 13:13 Review of Systems ROS Status of ROS 10 or more systems reviewed and unremarkable except as noted in history and below PFSH PFS Medical History (Updated 02/19/24 @ 12:00 by Priscila Hawkins DO) delivery delivered ?O82 - Encounter for delivery without indication (ICD-10) Family History (Updated 01/21/24 @ 13:21 by Evelyne Prescott LPN) Grandmother Family history of cancer Father Family history of diabetes mellitus Social History (Updated 01/21/24 @ 13:22 by Eevlyne Prescott LPN) Within the past year, how often did you have a drink containing alcohol: monthly or less Within the past year, how many standard drinks containing alcohol did you have on a typical day: 1 or 2 Within the past year, how often did you have six or more drinks on one occasion: never Total score: 0 Score interpretation: A score less than 3 is consistent with normal alcohol consumption. Smoking status: Never smoker Non-prescribed substance use: denies use Previous occupational history: food mobile driver Known occupational exposures/hazards: No Highest level of school completed/degree received: high school graduate Are you now , , , , never or living with a partner: In a typical week, how many times do you talk on the telephone with family, friends, or neighbors: 3 or more times per week How often do you get together with friends or relatives: 3 or more times per week How often do you attend judaism or nondenominational services: never Do you belong to any clubs or organizations such as judaism groups unions, fraternal or athletic groups, or school groups: no Total score: 1 Score interpretation: A score of less than or equal to 1 indicates the most socially isolated. Little interest or pleasure in doing things: not at all Feeling down, depressed, or hopeless: not at all Feel stressed/tense/nervous/anxious/difficulty sleeping: not at all Due to disability, difficulty making decisions: No Do you think of yourself as: straight/heterosexual Gender Identity: female Exam Narrative Exam Narrative: General: alert, no acute distress Cardiovascular: regular rate and rhythm, normal peripheral perfusion. Respiratory: Lungs CTA, respirations non labored. Extremities: no deformity, no trauma. Neurological: oriented x 4, LOC appropriate for age. Small red bump on the forehead where she got stung. Very very mild left periorbital edema. No wheezing Constitutional Vital Signs, click to edit/add: Last Vital Signs Temp 98 F 02/19/24 11:54 Pulse 74 02/19/24 11:54 Resp 02/19/24 11:54 BP 123/86 02/19/24 11:54 Pulse Ox 98 02/19/24 11:54 O2 Del Method Room Air 02/19/24 11:54 Course Vital Signs Vital signs: Vital Signs Temperature 98 F 02/19/24 11:54 Pulse Rate 74 02/19/24 11:54 Respiratory Rate 02/19/24 11:54 Blood Pressure 123/86 02/19/24 11:54 Pulse Oximetry 98 02/19/24 11:54 Oxygen Delivery Method Room Air 02/19/24 11:54 Temperature 98 F 02/19/24 11:54 Pulse Rate 74 02/19/24 11:54 Respiratory Rate 02/19/24 11:54 Blood Pressure 123/86 02/19/24 11:54 Pulse Oximetry 98 02/19/24 11:54 Oxygen Delivery Method Room Air 02/19/24 11:54 Medical Decision Making MDM Narrative Medical decision making narrative: Most likely just a local reaction to the bee sting, histamine response. 10 mg of Decadron given here in ED. I do not think patient needs steroid taper and I do not think she needs any antibiotics at this time. It does not appear to be cellulitic or infection. Return to ED if worsening symptoms Differential Diagnosis Differential Diagnosis: Cellulitis allergic reaction Discharge Plan Discharge Stand Alone Forms: Work/School Release, Portal Instructions Chief Complaint: Skin/Abscess/Foreign Body Clinical Impression: Bee sting reaction Patient Disposition: Home, Self-Care Time of Disposition Decision: 12:00 Mode of Transportation: Private Vehicle Prescriptions / Home Meds: No Action ondansetron 4 mg tablet,disintegrating 4 mg PO Q8H PRN (Reason: nausea and vomiting) Qty: 10 0RF Print Language: [place] Instructions: Insect Bite or Sting (ED) Referrals: Physician,Non-Staff, MD [Primary Care Provider] - 1 week
--- OUTSIDE RECORDS SUMMARY | 2024-02-19 12:03 | XMS_ITS | CCD ---
Author Organization [facility] Care Team Providers Care Back Hoe Operator Name Role Phone MD Delmer Og Attending Provider NONE, XXXX Primary Care Physician Unavailab le Shaikh Og Attending Unavailable Shaikh Og Admitting Unavailable Fidel CASTRO Attending Unavailable Fidel CASTRO Attending Unavailable Allergies Allergy Classification Reported Allergen(s) Allergy Type Date of Onset Reaction(s) Facility (2 sources) Penicillin; Translations: [penicillin] Drug Allergy Weal (disorder) [facility] [place] (1 source) Penicillins Drug allergy (disorder) [address] [place] [address] Repository Medications Current Medications Medication Drug Class(es) Dates Sig (Normalized) Sig (Original) dicyclomine hydrochloride 10 mg oral capsule (1 source) Anticholinergic Start: 01-31-2019 take 10 mg by mouth three times daily Dicyclomine Active 10 MG PO Three times daily January 31, 2019 9:34am Completed/Discontinued Medications Medication Drug Class(es) Dates Sig (Normalized) Sig (Original) naproxen 500 mg oral tablet (1 source) Nonsteroidal Anti-inflammatory Drug Start: 12-08-2018 End: 01-06-2019 take 1 tablet by mouth twice daily Naproxen (Naprosyn) 500 mg tablet Discontinued 500 MG PO Twice daily December 08, 2018 12:00am January 06, 2019 4:48pm Problems Problem Classification Problem Date Documented Date Episodic/Chronic Biliary tract disease (3 sources) Gallbladder calculus with acute cholecystitis and obstruction; Translations: [Calculus of gallbladder with acute cholecystitis with obstruction] Onset: 01-21-2024 Episodic Gastritis and duodenitis (1 source) Gastritis; Translations: [Gastritis, unspecified, without bleeding] 01-31-2019 Episodic Nonspecific chest pain (1 source) Chest wall pain; Translations: [Other chest pain] 01-06-2019 Episodic Other injuries and conditions due to external causes (1 source) Contusion; Translations: [Other injury of unspecified body region, initial encounter] 12-08-2018 Episodic Other injuries and conditions due to external causes (1 source) Abrasion; Translations: [Other injury of unspecified body region, initial encounter] 12-08-2018 Episodic Results Test Name Value Interpretation Reference Range Facil ity Ambulatory Visit Summaryon 0 01-28-2024 Ambulatory Visit Summary Ambulatory Visit Summary CRYS OLIVAS :1980 Visit Date:01/28/2024 Ambulatory Visit Instructions Your Care Team Attending Physician - MATTHEW LEMUS, Fidel Penaloza Primary Care Physician - NONE, XXXX Procedures Performed Laparoscopic cholecystectomy (01/22/2024), section, section. Allergies penicillin (Hives) Problems Ongoing - Any problem that you are currently receiving treatment for. Acute cholecystitis Patient Survey You may receive a survey via text or e-mail asking about your office visit. Please share your experience with us by completing your survey. We appreciate your feedback and thank you for choosing us for your care. Normal [facility] General Surgery Office/Clini c Noteon 01-28-2024 General Surgery Office/Clinic Note General Surgery Office/Clinic Note Chief Complaint post operative follow up HPI Staff 6 day post operative follow up post lap cholecystectomy completed while in-patient at the [facility]. Reports minimal discomfort, no use of pain medication as of today. Denies bleeding or drainage. Reports appetite is fair, eating small frequent meals. Denies nausea or vomiting. Denies bowel changes. History of Present Illness 6 days s/p LS cholecystectomy for acute calculus cholecystitis; mild soreness, controlled with ibuprofen, no N/V; normal bms, no fevers, no drainage from incisions; tolerating light diet; no strenuous activities. Review of Systems PHQ Score Initial Depression Screen Score: 0 SCORE ROS - Provider Constitutional: no fever, no sweats, no weight loss. Eyes: no glasses, no blurred vision, no visual loss. ENMT: no dentures, no hoarseness, no swallowing difficulties, no hearing loss, no ear infection(s), no nose bleeds. Cardiovascular: normal blood pressure, no chest pain, regular heartbeat, no heart murmur. Respiratory: no shortness of breath, no cough, no asthma, no wheezing. Gastrointestinal: no nausea, no vomiting, no diarrhea, no constipation, no blood in stool, no change in bowel habits, no abdominal pain, no hepatitis. Genitourinary: no kidney stones, no urine infection, no dysuria. Musculoskeletal: no pain, no weakness. Skin: no changing moles, no rash, no skin lumps. Neurologic: no seizures, no epilepsy, no headache. Psychiatric: no emotional or psychiatric problem. Heme/Lymph: no bleeding problems, no anemia, no blood clots, no transfusions. Allergy/Immunologic: no swollen lymph nodes/glands, no IV drug abuse. Other: Additional ROS info: Except as noted in the above Review of Systems and in the History of Present Illness, all other systems have been reviewed and are negative or noncontributory. Physical Exam abd: obese, soft, nontender, nondistended; incisions without erythema or drainage; mild resolving ecchymosis infraumbilical area. Assessment/Plan 1. Calculus of gallbladder with acute cholecystitis with obstruction (K80.01: Calculus of gallbladder with acute cholecystitis with obstruction) doing well; continue no lifting > 10 lbs for 3 weeks; keep incisions clean and dry, clean umbilicus daily with rubbing alcohol after showering; call with problems/questions. Follow-up No qualifying data available Problem List/Past Medical History Ongoing Acute cholecystitis Calculus of gallbladder with acute cholecystitis with obstruction Historical No qualifying data Procedure/Surgical History Laparoscopic cholecystectomy (01/22/2024), section, section. Medications No active medications Allergies penicillin (Hives) Social History Alcohol - Denies Alcohol Use, 01/28/2024 Substance Abuse Current, Marijuana, Daily, 01/28/2024 Tobacco Never (less than 100 in lifetime) Tobacco Use:. Never Smokeless Tobacco Use:., 01/28/2024 Family History Family history is negative Immunizations Vaccine Date Status SARS-CoV-2 (COVID-19) mRNA-1273 vaccine 10/16/2020 Recorded SARS-CoV-2 (COVID-19) mRNA-1273 vaccine 09/18/2020 Recorded Normal [facility] Comment on above: Result Comment: Elec tronically Signed By: MATTHEW LEMUS, Fidel Martin\Date and Time Signed: 01/28/24 16:26 EDT Curtis 01-23-2024 L Specimen: [id number] Received: 01/23/24 Status: ROME June Num: [id number] Spec Type: Surgical Subm Dr: Shaikh Lenka MD Tissues: A Gallbladder (GALLBLADDER) Procedures: HE, Gross/Micro L3 Age/ Patient Sex Location Account Attending Physician Crys Olivas 44/F LABELL [id number] Shaikh Lenka MD SPEC NUM: [id number] RECD: 01/23/24 STATUS: ROME JUNE NUM: [id number] NANNETTE: 01/23/24- SUBM DR: Shaikh Lenka MD ENTERED: 01/23/[address]: Catarina Oh SPEC TYPE: Surgical DEPT: OLGA RUEDA ENTERED BY: [id number] RECV BY: [id number] ORDERED: HE, Gross/Micro L3 ORDERED: HE, Gross/Micro L3 Pathological Diagnosis Gallbladder, cholecystectomy: Acute cholecystitis and cholelithiasis. Clinical Information Abdominal pain/vomiting, acute cholecystitis. Gross Description Received in formalin, labeled with the patient's name, date of and gallbladder and contents is a previously disrupted gallbladder measuring 11.2 cm in length by 3.6 cm in diameter covered by smooth sldae-pink serosa and an adjacent roughened slade-pink hepatic surface. No lymph nodes are present. The gallbladder wall measures 0.1 cm in thickness. The 0.3 cm in diameter cystic duct is inked green and shaved. Opening into the specimen reveals numerous (greater than 40) light green multifaceted stones ranging from 1.6 cm to 0.3 cm, along with green viscous bile. The mucosa is bile-stained and roughened. No mucosal polyps or lesions are present. Casting Assistant sections are submitted in A1. CPT Codes 56105 ---- ---- Specimen: [id number] Received: 01/23/24 Status: ROME June Num: [id number] Spec Type: Surgical Subm Dr: Shaikh Lenka MD Tissues: A Gallbladder (GALLBLADDER) Procedures: Benji GUTIERREZ/Faina L3 ---- Patient: Cyrs Olivas [id number] (Continued) ---- Signed (signature on file) Karlie Garcia MD 01/27/24 1400 Normal [facility] Encounters Encounter Date Encounter Type Care Provider Facility Start: 01-28-2024 End: 01-28-2024 ambulatory Fidel CASTRO Facility: [place] Start: 01-28-2024 End: 01-28-2024 Patient encounter procedure Fidel CASTRO [facility] [place] Start: 01-23-2024 ambulatory Fidel NILL Facility:[facility] Start: 01-22-2024 End: 01-22-2024 ambulatory Shaikh Lenka [facility] Work Phone: Start: 01-22-2024 End: 01-22-2024 Departed Referred MD Shaikh Og Work Phone: [facility] Start: 01-21-2024 End: 01-22-2024 ambulatory Fidel R NILL Facility:[id number] Procedures Date Procedure Procedure Detail Performing Clinician Start: 01-22-2024 Laparoscopic cholecystectomy Fidel NILL section Fidel NIL L section Fidel NIL L Immunizations Immunization Date Immunization Notes Care Provider Fa cili 10-16-2020 SARS-CoV-2 (COVID-19 ) mRNA-1273 vaccine Fidel NILL [facility] 09-18-2020 SARS-CoV-2 (COVID-19 ) mRNA-1273 vaccine Fidel NILL [facility] Payers Date Payer Category Payer Medicaid [id number] 2024 Self-pay [id number] 1980 Unknown [id number] 1980 Unknown [id number] Medicaid [facility] [id number] Unknown [place] BC/BS [id number] Unknown [id number] Social History Date Type Detail Facility Start: 01-31-2019 Tobacco smoking stat us NHIS Ex-smoker (finding) [facility] Start: 1980 Sex Assigned At Female [facility] Start: 01-28-2024 Tobacco smoking status Never s moked tobacco (finding) [facility] [place] Tobacco smoking status Never [facility] [place] Sex Assigned At Female [facility] Functional Status Date Assessment Result Facility 01-28-2024 Functional Status N[facility] Evaluation + Plan note Note Date & Type Note Facility Evaluation + Plan note No data available for this section [facility] Evaluation note Note Date & Type Note Facility Evaluation note No assessment information availa [facility] Work Phone: Hospital Discharge instructions Note Date & Type Note Facility Hospital Discharge instructions No data available for this section [facility] Progress note Note Date & Type Note Facility Progress note No data available for this section [facility] Advance Directives No Advanced Directives Records Found Advance Directive Response Recorded Date/ Time Advance Directives No March 18, 2018 11:23am Summary Purpose Family History No Family History Records Found Additional Source Comments Care Teams (unrecognized sec tion and content) Team Status: Inactive Member Role Status Dates Shaikh Lenka MD Attending Provider Active Sta rt: January 22, 2024 End: January 22, 2024 Goals (unrecognized section and content) Goals may be documented in a n alternate section No data available for this section INFORMATION SOURCE (unrecogn ized section and content) DATE CREATED AUTHOR 01/29/2024 [facility] DATE CREATED AUTHOR 'S ORGANIZ ATION 02/01/2024 [facility] FOR RECORDS PERTAINING TO PATIENTS WHO ARE OR HAVE BEEN ENROLLED IN A CHEMICAL DEPENDENCY/SUBSTANCEABUSE PROGRAM, SOME INFORMATION MAY BE OMITTED. This clinical summary was aggregated from multiple sources. Caution should be exercised in using it in the provision of clinical care. This summary normalizes information from multiple sources, and as a consequence, information in this document may materially change the coding, format and clinical context of patient data. In addition, data may be omitted in some cases. CLINICAL DECISIONS SHOULD BE BASED ON THE PRIMARY CLINICAL RECORDS. [facility] [employer] [facility]. provides no warranty or guarantee of the accuracy or completeness of information in this document.
[2024-02-19] MEDS: DEXAMETHASONE SOD PHOS 10 MG/ML VIAL PO (12:22)
== END 2024-02-19 12:27 | disposition home or self-care (01) ==
PROVIDERS: Emergency Provider Emergency Medicine
DX: T63.441A Toxic effect of venom of bees, accidental (unintentional), initial encounter (principal)
CPT/HCPCS: 99283; J1100